=== PATIENT | male | born 1955 | race Caucasian/White ===

== ENCOUNTER 2021-09-26 09:17 | Observation (INO) ==
--- NOTE | 2021-08-25 09:17 | PAT Medication Instructions ---
Medication Instructions Date of Service August 25, 2021 Home Medications aspirin 81 mg tablet,delayed release 81 mg PO HS cholecalciferol (vitamin D3) 125 mcg (5,000 unit) tablet (Vitamin D3) 125 mcg PO QAM cholestyramine (with sugar) 4 gram oral powder (Questran) 4 g PO HS ezetimibe 10 mg tablet (Zetia) 10 mg PO HS glucosamine sulf dipot chlr,msm,chond 550 mg-C 30 mg-nina 1 mg capsule (Glucosamine Chondroitin) 2 cap PO QAM levothyroxine 100 mcg capsule 100 mcg PO QAM multivitamin 1 tab PO QAM omega-3 fatty acids 4,000 mg PO HS tadalafil 5 mg tablet (Cialis) 5 mg PO HS valacyclovir 500 mg tablet (Valtrex) 500 mg PO UD PRN STOP taking 2 weeks before surgery glucosamine sulf dipot chlr,msm,chond 550 mg-C 30 mg-nina 1 mg capsule (Glucosamine Chondroitin) 2 cap PO QAM omega-3 fatty acids 4,000 mg PO HS STOP taking 24 hours before surgery tadalafil 5 mg tablet (Cialis) 5 mg PO HS DO NOT take the morning of surgery cholecalciferol (vitamin D3) 125 mcg (5,000 unit) tablet (Vitamin D3) 125 mcg PO QAM multivitamin 1 tab PO QAM Take morning of surgery With a small sip of water, OTHERWISE NOTHING TO EAT OR DRINK AFTER MIDNIGHT: levothyroxine 100 mcg capsule 100 mcg PO QAM valacyclovir 500 mg tablet (Valtrex) 500 mg PO UD PRN(if needed) Take evening before surgery aspirin 81 mg tablet,delayed release 81 mg PO HS (unless directed otherwise by surgeon) cholestyramine (with sugar) 4 gram oral powder (Questran) 4 g PO HS ezetimibe 10 mg tablet (Zetia) 10 mg PO HS Other Notes If you have any questions please call us at [phone] or [phone] or [phone] or [phone]
--- NOTE | 2021-08-25 09:21 | Anesthesiology Consultation ---
Date of Service August 25, 2021 Assessment & Plan (1) Encounter for pre-operative examination: - bilat TKA: Discussed unilateral vs bilateral TKA, pt states that he is aware of risks also discussed with surgeon and wants to proceed with bilat TKA. - COVID screening: Per assessment on 08/25/2021: Travel screen negative, no known COVID-19 positive contacts or current COVID-19 related symptoms in past 2 weeks. Patient vaccinated. Surgeon arranging preop COVID testing, scheduled 09/22/2021. Awaiting results. Chart Review Chart Review: Acceptable Risk for Surgery and Patient seen in Pre Admission Testing Teaching & Discussion Pre-Anesthesia Teaching/Discussion Notes: Instructed NPO after midnight before surgery, except medications with 15 cc of water. Medication instructions provided according to the PAT guidelines. History Surgery Operation Date: 09/26/21 10:30 Proposed Procedures p Total Knee Arthroplasty Bilateral - Mj Bell DO Height/Weight Height: 5 ft 7 in Weight: 90.9 kg Allergies Allergy/AdvReac Type Severity Reaction Status Date / Time niacin Allergy Intermediate FELT HOT Verified 08/25/21 07:32 ALL OVER BODY oxycodone AdvReac Intermediate nausea and Verified 08/25/21 09:39 vomiting Medications Home Medications Medication Instructions Recorded Confirmed Last Taken aspirin 81 mg tablet,delayed 81 mg PO HS 08/25/21 08/25/21 Unknown release cholecalciferol (vitamin D3) 125 125 mcg PO QAM 08/25/21 08/25/21 Unknown mcg (5,000 unit) tablet (Vitamin D3) cholestyramine (with sugar) 4 gram 4 g PO HS 08/25/21 08/25/21 Unknown oral powder (Questran) ezetimibe 10 mg tablet (Zetia) 10 mg PO HS 08/25/21 08/25/21 Unknown glucosamine sulf dipot 2 cap PO QAM 08/25/21 08/25/21 Unknown chlr,msm,chond 550 mg-C 30 mg-nina 1 mg capsule (Glucosamine Chondroitin) levothyroxine 100 mcg capsule 100 mcg PO QAM 08/25/21 08/25/21 Unknown multivitamin 1 tab PO QAM 08/25/21 08/25/21 Unknown omega-3 fatty acids 4,000 mg PO HS 08/25/21 08/25/21 Unknown tadalafil 5 mg tablet (Cialis) 5 mg PO HS 08/25/21 08/25/21 Unknown valacyclovir 500 mg tablet 500 mg PO UD PRN 08/25/21 08/25/21 Unknown (Valtrex) Past Medical History Medical History (Updated 08/25/21 @ 09:19 by Germania Parra PA-C) Arthritis Frequent urination at night REASON FOR CIALIS Hyperlipidemia Hypothyroidism Neuropathy LEFT ARM/"ELBOW NERVE PROBLEM" Patient denies h/o stroke, seizures, heart attack, heart failure, DM, HTN, blood clots or blood transfusions. Exercise / Class Metabolic Activity II 4-5 Yardwork/Stairs/Walk up hill (denies CP or SOB with 1 FOS) Past Family History Family History Sister Family hx colonic polyps Other No family history of adverse response to anesthesia Past Surgical History Surgical History (Updated 08/25/21 @ 09:29 by Germania Parra PA-C) Fusion of spine 04/2019-LUMBAR FUSION L4-L5 H/O hand surgery R I&D 2007 H/O metal removed from eye H/O shoulder surgery LEFT History of carpal tunnel release RT History of colonoscopy History of tooth extraction [place] teeth removed Past Anesthesia History No Hx of Anesthesia Complications and No Family Hx of Anesthesia Complications History of PONV No Hx of PONV and No Hx of Motion Sickness Social History Smoking Status: Never smoker Do You Dip or Chew Tobacco: No Hx Alcohol Use: Yes alcohol intake frequency: holidays/special occasions only substance use type: does not use Review of Systems Occasional snoring, denies witnessed apneas or sleep studies. Patient denies chest pain, shortness of breath, dyspnea on exertion, reflux, fever, chills, cough, wheezing, or palpitations. Physical Exam Vital Signs Vitals BP 127/77 P 76 TEMP 98.3 SP02 97% on RA RESP 17 Physical Full cervical extension range of motion without pain TMD 3.5 finger breaths Mallampati Score 3 Dentition: intact, implant front upper tooth; denies chipped or loose teeth, caps/crowns Lungs: normal respiratory effort. Clear throughout to auscultation, no adventitious breath sounds Cardiac: regular rate and rhythm, no murmurs noted Carotid arteries: negative bruit bilat Lab Results Anesthesia Preop Results Results Anesthesia Widget: WBC 6.76 K/uL (4.8-10.8) 08/25/21 Hgb 13.2 g/dL (14.0-18.0) L 08/25/21 Hct 41.2 % (42-52) L 08/25/21 Plt 214 K/uL (130-400) 08/25/21 Na 141 mmol/L (136-145) 08/25/21 K 4.1 mmol/L (3.5-5.1) 08/25/21 Cl 110 mmol/L (98-107) H 08/25/21 CO2 25 mmol/L (21-32) 08/25/21 BUN 20 mg/dl (6-23) 08/25/21 Creat 0.87 mg/dl (0.6-1.4) 08/25/21 Glucose Level 94 mg/dl (70-99(Fasting)) 08/25/21 PT 10.7 Seconds (9.0-12.0) 08/25/21 PTT 27.1 Seconds (21.0-31.0) 08/25/21 INR 1.0 (0.9-1.1) 08/25/21 HA1c 5.7 % (4.5-5.6) H 08/25/21 Urine Color Yellow 08/25/21 Urine Appearance Clear (Clear) 08/25/21 Urine pH 5.5 (4.5-7.5) 08/25/21 Urine Specific [place] 1.025 (1.000-1.030) 08/25/21 Urine Protein Negative (Negative) 08/25/21 Urine Glucose (UA) Negative (Negative) 08/25/21 Urine Ketones Negative (Negative) 08/25/21 Urine Blood Negative (Negative) 08/25/21 Urine Nitrite Negative (Negative) 08/25/21 Urine Bilirubin Negative (Negative) 08/25/21 Urine Urobilinogen Negative (Negative) 08/25/21 Urine Leukocyte Esterase Negative (Negative) 08/25/21 Blood Type O Positive 08/25/21 Antibody Screen NEGATIVE 08/25/21 Testing Electrocardiogram Date: 08/25/21 NSR, rate 65 bpm Chest X-Ray Date: 08/25/21 No acute cardiopulmonary findings.
--- NOTE | 2021-08-28 14:10 | History & Physical Report ---
Date of Service August 28, 2021 date of surgery: 09/26/21 Procedure: Bilateral Total Knee Arthroplasty Surgeon: Mj Bell Assessment & Plan (1) Degenerative arthritis of knee, bilateral: Plan: Risks and benefits of procedure discussed in detail today, patient would like to proceed with Bilateral total knee replacements at [facility] as scheduled. will obtain medical clearance prior to surgery as well as obtain PATs at [facility]. Will place on Xarelto x 1 month post op, f/u 2 weeks post op for routine post-operative care and x-ray, sooner if having any problems. will make arrangements for HHPT at the time of discharge. At this point in time, has failed conservative measures and would like to proceed with surgical intervention. will schedule for Iovera inj prior to his TKAs The risks and benefits have been discussed including, but not limited to, risk of infection, nerve injury, stiffness, loss of motion, failure to improve, etc. Reasonable outcomes and options of treatment were discussed. An explanation of appropriate alternatives to the procedure that may be advantageous were discussed and their risks and benefits, as well as the risks and benefits of not proceeding with treatment. I offered to answer any additional inquiries concerning the treatment involved. All the patient's questions were answered. The patient is agreeable, understanding of the treatment plan and alternatives, and wishes to proceed with the treatment plan. History of Present Illness Chief Complaint: bilateral knee pain Primary Care Provider: ANA PCP Rashid is a 66 year old male who complains of bilateral knee pain, presents for pre-op evaluation prior to bilateral total knee replacements. He complains of pain, crepitus, decreased range of motion, instability and stiffness in both of his knees. he has tried and failed prior cortisone injections, Zilretta injections, and visco injections. His pain is described as aching, sharp and throbbing. His symptoms are aggravated by ascending stairs, daily activities, first steps while awake walking. Prior NSAIDs include IBU and Aleve. Allergies Allergy/AdvReac Type Severity Reaction Status Date / Time niacin Allergy Intermediate FELT HOT Verified 08/25/21 07:32 ALL OVER BODY oxycodone AdvReac Intermediate nausea and Verified 08/25/21 09:39 vomiting Home Medications Medication Instructions Recorded Confirmed Type aspirin 81 mg tablet,delayed 81 mg PO HS 08/25/21 08/25/21 History release cholecalciferol (vitamin D3) 125 125 mcg PO QAM 08/25/21 08/25/21 History mcg (5,000 unit) tablet (Vitamin D3) cholestyramine (with sugar) 4 gram 4 g PO HS 08/25/21 08/25/21 History oral powder (Questran) ezetimibe 10 mg tablet (Zetia) 10 mg PO HS 08/25/21 08/25/21 History glucosamine sulf dipot 2 cap PO QAM 08/25/21 08/25/21 History chlr,msm,chond 550 mg-C 30 mg-nina 1 mg capsule (Glucosamine Chondroitin) levothyroxine 100 mcg capsule 100 mcg PO QAM 08/25/21 08/25/21 History multivitamin 1 tab PO QAM 08/25/21 08/25/21 History omega-3 fatty acids 4,000 mg PO HS 08/25/21 08/25/21 History tadalafil 5 mg tablet (Cialis) 5 mg PO HS 08/25/21 08/25/21 History valacyclovir 500 mg tablet 500 mg PO UD PRN 08/25/21 08/25/21 History (Valtrex) Past Med/Surg History Medical History Arthritis Frequent urination at night REASON FOR CIALIS Hyperlipidemia Hypothyroidism Neuropathy LEFT ARM/"ELBOW NERVE PROBLEM" Surgical History Fusion of spine 04/2019-LUMBAR FUSION L4-L5 H/O hand surgery R I&D 2007 H/O metal removed from eye H/O shoulder surgery LEFT History of carpal tunnel release RT History of colonoscopy History of tooth extraction [place] teeth removed Family History Sister Family hx colonic polyps Other No family history of adverse response to anesthesia Social History Smoking Status: Never smoker Second Hand Exposure: No; Hx Alcohol Use: Yes Preferred Language: Welsh 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 Beliefs That Will Affect Care: None Current Living Situation: Spouse Feels Safe at Home: Yes Assistive Devices: Glasses and Hearing Aid - Bilateral Review of Systems Review of Systems: All systems reviewed & are unremarkable except as noted in HPI & below Constitutional: no fever, no chills and no sweats Respiratory: no cough and no dyspnea Cardiovascular: no chest pain, no dyspnea and no orthopnea Gastrointestinal: no abdominal pain, no nausea and no vomiting Musculoskeletal: as per Subjective / HPI Physical Exam Physical Exam: HT: 5ft 7in WT: 90.9kg Constitutional: WD/WN, vitals as above no acute distress Respiratory: normal respiratory effort, lungs clear to auscultation no respiratory distress, no labored breathing and does not use accessory muscles Cardiovascular: RRR, no murmur, no edema Gastrointestinal (Abdomen): normal bowel sounds, soft, nontender, no hepatosplenomegaly Musculoskeletal: Bilateral knee Physical exam Overall patient has varus alignment bilaterally, there is no atrophy or ecchymosis noted, +1 suprapatellar effusion in both knees, positive tenderness to both medial and lateral joint lines right knee, more medial sided tenderness to the left knee. negative patellar apprehension, positive crepitation noted to both knees with active ROM. bilateral knees stable to valgus and varus stress, lakeisha negative, posterior drawer negative. Range of motion right knee 0/3/110, left knee 0/3/115. lower extremities are neurovascularly intact, calf soft and non tender, DP pulse +2 bilaterally. Results & Data Results & Data ([facility]) Diagnostic Findings Bilateral Knee X-ray: bilateral knee series confirm advanced degenerative changes bilateral knees, greatest medial compartments and patellofemoral joints, showing joint space narrowing, osteophyte formation and subchondral sclerosis. no acute bony pathology noted.
[~2021-09-26 09:17] MED LIST: ACETAMINOPHEN 500 MG TAB PO SCH; BUPIVACAINE 0.5 % 5 MG/1 ML PF 10ML VIAL ONE; CeleBREX 200 MG CAP PO SCH; FAMOTIDINE 20 MG TAB PO SCH; GABAPENTIN 300 MG CAP PO SCH; LR 500ML BOLUS, THEN 15ML/HR IV SCH; LR 60ML/HR IV SCH; METOCLOPRAMIDE HCL 10 MG TABLET PO SCH; ROPIVACAINE 0.5% 5 MG/ML 30 ML VIAL ONE; ROPIVACAINE 0.5% HCL/PF 150 MG, BUPIVACAINE 0.75% MPF 20 ML, EPINEPHrine 30MG/30ML (OR ... INFIL SCH; TRANEXAMIC ACID 1,000 MG **IV Intra-op IV SCH; TRANEXAMIC ACID 1,000 MG **IV Pre-op IV SCH; ceFAZolin 2000MG 2,000 MG/15 ML SYR IV SCH; dexAMETHasone 4 MG TAB PO SCH
--- NOTE | 2021-09-26 10:54 | History & Physical Bridge Note ---
Date of Service September 26, 2021 History & Physical Bridge Note I have examined the patient, reviewed the History & Physical and in the interval since the performance of the History & Physical I have noted the following changes of clinical significance: no changes noted
[2021-09-26] MEDS ORDERED: MIDAZOLAM HCL 1 MG/ML 2ML VIAL ONE (11:01)
[2021-09-26] MEDS ORDERED: fentaNYL citrate 100 MCG/2 ML VIAL ONE (11:01)
[2021-09-26] MEDS ORDERED: ePHEDrine sulfate 50 MG/ML AMP IV PRN (12:37)
[2021-09-26] MEDS ORDERED: ATROPINE SULFATE 0.1 MG/ML 10ML SYR IV PRN (12:37)
[2021-09-26] MEDS ORDERED: ONDANSETRON INJ 2 MG/ML 2 ML VIAL IV PRN ×2 (12:37→18:03)
[2021-09-26] MEDS ORDERED: HYDROmorphone INJ 2 MG/ML SYR/VIAL IV PRN (12:37)
[2021-09-26] MEDS ORDERED: fentaNYL citrate 100 MCG/2 ML VIAL IV PRN (12:37)
[2021-09-26] MEDS ORDERED: PROMETHAZINE HCL 12.5 MG in SODIUM CHLORIDE 0.9% 50 ML IV PRN (12:37)
[2021-09-26] MEDS ORDERED: ORTHO JOINT ANESTHETIC ONE (13:12)
[2021-09-26] MEDS ORDERED: PROPOFOL IV EMULSION 10 MG/ML 20 ML VIAL IV ONE ×2 (14:23→15:40)
[2021-09-26] MEDS ORDERED: LIDOCAINE 2% 2 ML VIAL/AMP(20MG/ML) INFIL ONE (14:23)
[2021-09-26] MEDS ORDERED: ONDANSETRON INJ 2 MG/ML 2 ML VIAL ONE (14:23)
--- NOTE | 2021-09-26 15:27 | Operative Report ---
Post Operative Report Pre & Post Diagnosis Operation Date: 09/26/21 12:15 Pre-Op Diagnosis: Bilateral Knee Osteoarthritis Post-Op Diagnosis: Bilateral Knee Osteoarthritis I identified the patient and participated in the time-out.: Yes Procedure Operation Date: 09/26/21 12:15 Actual Procedures p Bilateral Total Knee Arthroplasty(Bilateral left size 9 standard femur size F tibia 10 polyethylene 28 oval patella right size 9 standard femur F tibia 11 medial constrained polythirty 1 oval patella Mj Bell DO Surgeon Mj Bell DO Blueprint Clerk Marquise LOVELACE Estimated Blood Loss 10 Findings Consistent with Post-Op Diagnosis Patient resents with severe end-stage tricompartmental degenerative joint disease bilateral knees with varus alignment subchondral sclerosis marginal osteophytes bilaterally eburnated [id number] large effusions bilaterally Specimens Bone and cartilage Drains Medium bore Hemovac Anesthesia Type MAC Spinal Regional Complications none Disposition Accompanied Patient To Recovery: No Disposition: Recovery Room Indications Patient presents severe end-stage tricompartmental degenerative joint disease bilateral knees no response to conservative management patient has failed attempted corticosteroid injection viscosupplementation relative rest activity modification patient presents for bilateral total knee arthroplasty Description of Procedure After proper prepping and draping of the bilateral lower extremities, an anterior midline incision was made over the region of the extensor extensor mechanism of the left knee. After meticulous hemostasis was obtained and maintained in subcutaneous tissues a medial parapatellar incision was made The patella was subluxed lateralward the medial lateral gutter were cleaned from any hypertrophic synovitis and scar tissue of the distal femoral block was placed and the distal femoral osteotomy cut was made subsequently the chamfers anterior and posterior osteotomy cuts were made utilizing the 4-in-1 block the tibia was subsequently subluxed anteriorward medial and ateral meniscal remnants were excised in their entirety remnants of the anterior and posterior cruciate ligaments were excised in their entirety excellent exposure of the proximal tibia was obtained the tibial osteotomy guide was placed on the proximal tibial osteotomy cut was made once again the knee was irrigated with copious amounts of sterile saline solution the patella was subsequently everted lateralward thickened scar tissue around the patella was removed the patella was subsequently cut utilizing a freehand technique and was drilled prepared for final preparation and placement of patella socially flexion-extension gaps were checked and the equal and symmetric trials were placed to the appropriate femoral and tibial trials with poly-spacer being placed for equal flexion and extension gaps and full range of motion including extension to 0 and flexion to 140 the trial components after having been taken to recovery range of motion was subsequently removed meticulous hemostasis was obtained and maintained subsequently a knee block injection of joint cocktail including ropivacaine 0.5% 150 mg. Bupivacaine 0.5% epinephrine 1-200,030 mL's toradol 30 mg dexamethasone 4 mg ketamine 10 mg clonidine 100 micrograms normal saline solution 30 mg was infiltrated into the soft tissues of the posterior knee medial lateral gutters and periosteal synovium special attention was paid to protect neurovascular structures at all times subsequently trial components having been removed the knee was irrigated with sterile saline solution. debris was removed the proximal tibia was subsequently prepared and was made ready for the placement of the tibial component tibial component was also cemented and tamped into position the femoral component was subsequently placed and cemented in the position the patellar component was subsequently cemented in position because hemostasis once again obtained and maintained wound having been thoroughly irrigated with debridement and debridement lavage was performed as well as a medial parapatellar incision closed with #1 Vicryl in interrupted fashion subcutaneous was closed with #2 Vicryl skin was closed with skin clips Next, an anterior midline incision was made over the region of the extensor extensor mechanism of the right knee. After meticulous hemostasis was obtained and maintained in subcutaneous tissues a medial parapatellar incision was made The patella was subluxed lateralward the medial lateral gutter were cleaned from any hypertrophic synovitis and scar tissue of the distal femoral block was placed and the distal femoral osteotomy cut was made subsequently the chamfers anterior and posterior osteotomy cuts were made utilizing the 4-in-1 block the tibia was subsequently subluxed anteriorward medial and ateral meniscal remnants were excised in their entirety remnants of the anterior and posterior cruciate ligaments were excised in their entirety excellent exposure of the proximal tibia was obtained the tibial osteotomy guide was placed on the proximal tibial osteotomy cut was made once again the knee was irrigated with copious amounts of sterile saline solution the patella was subsequently everted lateralward thickened scar tissue around the patella was removed the patella was subsequently cut utilizing a freehand technique and was drilled prepared for final preparation and placement of patella socially flexion-extension gaps were checked and the equal and symmetric trials were placed to the appropriate femoral and tibial trials with poly-spacer being placed for equal flexion and extension gaps and full range of motion including extension to 0 and flexion to 140 the trial components after having been taken to recovery range of motion was subsequently removed meticulous hemostasis was obtained and maintained subsequently a knee block injection of joint cocktail including ropivacaine 0.5% 150 mg. Bupivacaine 0.5% epinephrine 1-200,030 mL's toradol 30 mg dexamethasone 4 mg ketamine 10 mg clonidine 100 micrograms normal saline solution 30 mg was infiltrated into the soft tissues of the posterior knee medial lateral gutters and periosteal synovium special attention was paid to protect neurovascular structures at all times subsequently trial components having been removed the knee was irrigated with sterile saline solution. debris was removed the proximal tibia was subsequently prepared and was made ready for the placement of the tibial component tibial component was also cemented and tamped into position the femoral component was subsequently placed and cemented in the position the patellar component was subsequently cemented in position because hemostasis once again obtained and maintained wound having been thoroughly irrigated with debridement and debridement lavage was performed as well as a medial parapatellar incision closed with #1 Vicryl in interrupted fashion subcutaneous was closed with #2 Vicryl skin was closed with skin clips.. Due to the complex nature of the procedure, the entire surgery was performed with the operational assistance of Marquise LOVELACE. The family and divorce legal assistant, under direct supervision, was involved in the actual performance of all aspects of the surgical procedure including hemostasis, tissue retraction and incision, instrument management, patient positioning, and wound closure. SHAHLA was necessary for prepping and drapping as well as wound closure of deep fascia Sub cutaneous tissue and skin and was necessary for the case. A sterile compressive dressings were placed, patient was taken to recovery in stable condition of report dictated by Ray I attest to the content of the Intraoperative Record and any orders documented therein. Any exceptions are noted below. I attest to the content of the Intraoperative Record and any orders documented therein. Any exceptions are noted below.
--- NOTE | 2021-09-26 16:45 | XRay Report ---
TWO VIEWS LEFT KNEE CLINICAL HISTORY: Postoperative examination. FINDINGS: AP and crosstable lateral portable views of the left knee are obtained. A left knee arthrop lasty is in near anatomic alignment. There has been undersurface remodeling of the patella. No acute fracture is seen. There are expected postoperative changes around the knee including a surgical drain , soft tissue edema, and subcutaneous gas. IMPRESSION: Expected postoperative changes status post left knee arthroplasty. No acute fracture is s een. ACT 112: Negative or not required by law. Electronically signed by: Jaspal Rinaldi M.D. 09/26/2021 4:44 PM
--- NOTE | 2021-09-26 16:46 | Anesthesiology Progress Note ---
Date of Service September 26, 2021 Anesthesia Post Procedure Vital Signs Vital Signs: Temp Pulse Pulse Resp BP Pulse Ox 09/26/21 16:35 61 17 121/75 98 09/26/21 16:25 64 16 117/80 100 09/26/21 16:15 36.3 C L 72 12 101/73 99 09/26/21 10:22 36.5 C 58 L 18 156/93 H 98 Pain Intensity Bilateral Knee: Pain Intensity: 6 Transfer of Care Handoff Completed per policy Notes Mental Status: alert / awake / arousable Patient Amnestic to Procedure: Yes Nausea / Vomiting: adequately controlled Pain: adequately controlled Airway Patency, RR, SpO2: stable & adequate BP & HR: stable & adequate Hydration State: stable & adequate Neuraxial Anesthesia: was administered and sensory block is resolving Anesthetic Complications: no major complications apparent
--- NOTE | 2021-09-26 16:47 | XRay Report ---
XR knee RT 1 or 2V routine CLINICAL HISTORY: Surgical Post Op. Status post knee replacement COMPARISON STUDY: No previous studies for comparison. TECHNIQUE: 2 right knee views FINDINGS: The patient is status post total knee replacement. The prosthetic components are in anatomi c alignment with no acute abnormality seen. Air is present within the soft tissues from the procedure . IMPRESSION: 1. Status post total knee replacement ACT 112: Negative or not required by law. Electronically signed by: Jaspreet Banerjee M.D. 09/26/2021 4:46 PM
[2021-09-26] MEDS ORDERED: oxyCODONE HCL IR 5 MG TAB (IMMEDIATE RELEASE) PO PRN (18:03)
[2021-09-26] MEDS ORDERED: bisacodyL 10 MG SUPP PR PRN (18:03)
[2021-09-26] MEDS ORDERED: HYDROmorphone INJ 0.5 MG/0.5 ML SYR IV PRN (18:03)
[2021-09-26] MEDS ORDERED: NALOXONE HCL 0.4 MG/1 ML VIAL/CARP IV PRN (18:03)
[2021-09-26] MEDS ORDERED: MAGNESIUM HYDROXIDE SUSP 30 ML UDC PO PRN (18:03)
[2021-09-26] MEDS: SODIUM CHLORIDE 0.9% 1000ML 1,000 ML IV SCH (18:20)
[2021-09-26] MEDS: DOCUSATE SODIUM 100 MG CAP PO SCH (20:15)
[2021-09-26] MEDS ORDERED: CHOLESTYRAMINE LIGHT 4 GM PKT PO SCH (21:00)
[2021-09-26] MEDS ORDERED: TADALAFIL 5 MG PO SCH (21:00)
[2021-09-26] MEDS ORDERED: EZETIMIBE 10 MG TABLET PO SCH (21:00)
[2021-09-26] MEDS ORDERED: SENNA 8.6 MG TAB PO SCH (21:00)
[2021-09-26] MEDS: ceFAZolin 2000MG 2,000 MG/15 ML SYR IV SCH (22:01)
[2021-09-26] MEDS: ACETAMINOPHEN 500 MG TAB PO SCH (22:01)
[2021-09-27] MEDS: SODIUM CHLORIDE 0.9% 1000ML 1,000 ML IV SCH (04:22)
[2021-09-27] MEDS: ACETAMINOPHEN 500 MG TAB PO SCH ×2 (05:51→13:13)
[2021-09-27] MEDS: ceFAZolin 2000MG 2,000 MG/15 ML SYR IV SCH (05:51)
--- NOTE | 2021-09-27 08:03 | Orthopedic Progress Note ---
Date of Service September 27, 2021 Assessment & Plan (1) Degenerative arthritis of knee, bilateral: Plan: Postop day 1 status post bilateral total knee arthroplasty. PT/OT protocols. Weightbearing as tolerated. DVT prophylaxis-rivaroxaban, SCDs, SUSAN ferreira. Pain management as written. Labs pending. DC planning-patient is planning for home health services upon discharge. Admission and Anticipated Discharge Date Admission Date: September 26, 2021 Subjective Postop day 1 Patient is sitting up in his chair at the bedside. He states he is feeling well this morning. Pain is controlled. He had some mild discomfort over the lateral aspect of his right knee but that is controlled at this time. Denies shortness of breath, chest pain, lightheadedness. No other complaints this morning. Physical Exam Physical Exam: Bilateral dressings are clean, dry, and intact. Calves are soft and nontender. Neurovascular is intact. Toes are mobile. He has good dorsiflexion and plantarflexion of both feet. Hemovac drainage noted to be 150 mL from the left knee and 125 mL in the right knee. Results & Data ([facility]) Vital Signs (Past 12 Hours) Vital Signs Temp Pulse Resp BP Pulse Ox 09/27/21 07:17 36.5 C 60 16 131/82 99 09/27/21 04:02 36.5 C 67 16 122/72 96 09/26/21 22:36 36.4 C L 68 18 112/67 95
[2021-09-27 08:04] LABS: Hematocrit (blood only) 37.4 % (42-52); Hemoglobin 12.1 g/dL (14.0-18.0); Mean Corpuscular Hemoglobin 27.5 pg (25-34); Mean Corpuscular Hgb Conc 32.4 g/dL (32-36); Mean Platelet Volume 10.2 fL (7.4-10.4); Platelet Count 238 K/uL (130-400); RDW Coefficient of Variation 14.4 % (11.5-14.5); RDW Standard Deviation 44.8 fL (36.4-46.3); White Blood Count 15.07 K/uL (4.8-10.8)
[2021-09-27] MEDS: DOCUSATE SODIUM 100 MG CAP PO SCH (08:05)
[2021-09-27 08:18] LABS: BUN Creatinine Ratio 20.7 (10-20); Calcium 8.7 mg/dl (8.5-10.1); Creatinine Clr Calc Pharmacy 92.2 ml/min; Est GFR (African American) 106.1 ml/min; Est GFR (Non-African American) 91.5 ml/min; Potassium 3.8 mmol/L (3.5-5.1)
[2021-09-27] MEDS ORDERED: MULTIVITAMIN TAB PO SCH (09:00)
[2021-09-27] MEDS ORDERED: RIVAROXABAN 10 MG TABLET PO SCH (09:00)
[2021-09-27] MEDS ORDERED: LEVOTHYROXINE SODIUM 100 MCG TABLET PO SCH (09:00)
[2021-09-27] MEDS ORDERED: CHOLECALCIFEROL 5,000 UNITS 125 MCG TAB PO SCH (09:00)
[2021-09-27] MEDS ORDERED: traMADol HCL 50 MG TABLET PO PRN ×2 (15:35→16:04)
--- NOTE | 2021-09-29 17:45 | Discharge Summary ---
Date of Service September 29, 2021 Admission HPI Per Admitting Provider Rashid is a 66 year old male who complains of bilateral knee pain, presents for pre-op evaluation prior to bilateral total knee replacements. He complains of pain, crepitus, decreased range of motion, instability and stiffness in both of his knees. he has tried and failed prior cortisone injections, Zilretta injections, and visco injections. His pain is described as aching, sharp and throbbing. His symptoms are aggravated by ascending stairs, daily activities, first steps while awake walking. Prior NSAIDs include IBU and Aleve. Admission Exam Per Admitting Provider Physical Exam: HT: 5ft 7in WT: 90.9kg Constitutional: WD/WN, vitals as above no acute distress Respiratory: normal respiratory effort, lungs clear to auscultation no respiratory distress, no labored breathing and does not use accessory muscles Cardiovascular: RRR, no murmur, no edema Gastrointestinal (Abdomen): normal bowel sounds, soft, nontender, no hepatosplenomegaly Musculoskeletal: Bilateral knee Physical exam Overall patient has varus alignment bilaterally, there is no atrophy or ecchymosis noted, +1 suprapatellar effusion in both knees, positive tenderness to both medial and lateral joint lines right knee, more medial sided tenderness to the left knee. negative patellar apprehension, positive crepitation noted to both knees with active ROM. bilateral knees stable to valgus and varus stress, lakeisha negative, posterior drawer negative. Range of motion right knee 0/3/110, left knee 0/3/115. lower extremities are neurovascularly intact, calf soft and non tender, DP pulse +2 bilaterally. Principal Diagnosis Osteoarthritis Bilateral Knees Discharge Data Allergies Allergy/AdvReac Type Severity Reaction Status Date / Time niacin Allergy Intermediate FELT HOT Verified 09/26/21 10:16 ALL OVER BODY oxycodone AdvReac Intermediate nausea and Verified 09/26/21 10:16 vomiting Procedures Performed Operation Date: 09/26/21 12:15 Actual Procedures p Bilateral Total Knee Arthroplasty(Bilateral) - Mj Bell DO Ordered Studies 09/26/21 05:00 US - OR guided needle placemen Routine Hospital Course (1) Degenerative arthritis of knee, bilateral: [facility], [id number] Orthopedic Progress Note Signed with Addenda Patient:RASHID KEE Admit Date:09/26/21 MR#:[id number] Att Phy:Mj Bell D.O. Acct ID:[id number] [facility] Phy:InésDeondre D.O. Date:1955 Fam Phy: Age:66 Location:3E Sex:M Room/Bed:[facility] cc: ~ *NOTICE TO RECEIVING GREEN PARTY/AGENCY This information is strictly Confidential and protected under [place] law. [place] law prohibits you from making any further disclosure of this information unless further disclosure is expressly permitted by the written consent of the person to whom it pertains or is authorized by law. A general authorization for the release of medical or other information is not sufficient for this purpose. Hospital accepts no responsibility if the information is made available to any other person, INCLUDING THE PATIENT. ADDENDUM 09/27/21ddendum September 27, 2021 12:44 Patient progressing well with his physical therapy. States that his pain did increase a little bit this morning however it is controlled at this time. No other complaints. He has ambulated a long hallway loop just prior to lunch. He is also worked on stairs. Continues to have some increased drainage from his Hemovac's however patient is planning for home health services and we will have them remove drains. Plan for discharge to home today. Addendum Signed By: <Electronically signed by Marquise Cunha PA-C> 09/27/211244 Addendum Cosigned By: <Electronically signed by Mj Bell DO> 09/27/21 125 Created: 09/27/21 Date of Service September 27, 2021 Assessment & Plan (1) Degenerative arthritis of knee, bilateral: Plan: Postop day 1 status post bilateral total knee arthroplasty. PT/OT protocols. Weightbearing as tolerated. DVT prophylaxis-rivaroxaban, SCDs, SUSAN hose. Pain management as written. Labs pending. DC planning-patient is planning for home health services upon discharge. Admission and Anticipated Discharge Date Admission Date: September 26, 2021 Subjective Postop day 1 Patient is sitting up in his chair at the bedside. He states he is feeling well this morning. Pain is controlled. He had some mild discomfort over the lateral aspect of his right knee but that is controlled at this time. Denies shortness of breath, chest pain, lightheadedness. No other complaints this morning. Physical Exam Physical Exam: Bilateral dressings are clean, dry, and intact. Calves are soft and nontender. Neurovascular is intact. Toes are mobile. He has good dorsiflexion and plantarflexion of both feet. Hemovac drainage noted to be 150 mL from the left knee and 125 mL in the right knee. Results & Data ([facility]) Vital Signs (Past 12 Hours) Vital Signs Temp Pulse Resp BP Pulse Ox 09/27/21 07:17 36.5 C 60 16 131/82 99 09/27/21 04:02 36.5 C 67 16 122/72 96 09/26/21 22:36 36.4 C L 68 18 112/67 95 HGB 12.1 Signed By: <Electronically signed by Marquise Cunha PA-C> 09/27/21 0805 <Electronically signed by Mj Bell DO> 09/27/21 0819 Total Time Total Time Spent Total Time Spent (In Minutes): 5 Discharge Plan Discharge Items Patient Disposition: Home - Home Health Services Reason For Visit: BILATERAL KNEE OSTEOARTHRITIS Discharge Diagnosis: Bilateral knee Osteoarthritis Activity: Per Instructions section Weightbearing: Left weightbearing and Right weightbearing Weightbearing Comment: as tolerated with walker Non-emergency contact: Surgeon Call non-emergency contact if: your pain is not controlled, your temperature is above 101.5, your wound has increased redness and your wound has increased drainage Follow-up/Referrals: Mj Bell DO [Surgeon] - (Follow up in 14 days from the day of your surgery for your first post operative visit. ) Deondre Conte D.O. [Primary Care Provider] - Diet: Regular Addtl Attending Provider Instructions: ACTIVITY RECOMMENDATIONS: SELF CARE INSTRUCTIONS AFTER TOTAL KNEE REPLACEMENT A. You may need to continue a physical therapy program after discharge from the hospital. There are several options available to you. Your doctor will assist you in selecting the best one for you. 1. An out-patient facility 2 to 3 times a week for therapy or home therapy. 2. Continue working on all exercises taught to you in the hospital. Your goals should be to increase bending of your knee to 90 degrees and beyond and to fully straighten your knee. B. You may progress at your own pace from walking with a walker or crutches to a cane; then to no assistive devices. C. Make walking a part of your daily routine. Be up as much as comfortable with rest periods throughout the day. Rest with leg elevation is very important. Use the ice wrap frequently for the first 3-4 weeks. D. There are no restrictions on activities. You may ride in a car, shop, participate in cuff slitter and all social activities. E. Wear the long elastic stockings (SUSAN hose) 20 hours a day for 2 weeks after surgery. They can be removed several times a day for laundering and for a bath. F. You may shower, no tub baths until cleared by your doctor. SPECIAL CARE INSTRUCTIONS: VERY IMPORTANT TO READ AND REVIEW A. There are a few signs you need to watch for after you are home. Call [facility] if you notice any of the followin. Increased severe knee pain. Some pain is expected especially when you exercise. 2. Increased swelling in your leg or knee; pain or swelling of the calf muscle in either lower leg. 3. Any fluid drainage from the incision. 4. Shortness of breath or chest pain. B. Please call [facility] at if you have any concerns or questions about your operation or recovery. The doctor or his nurse will return your call promptly. C. You must take antibiotics before dental work, bladder, bowel or other surgery. Your doctor will provide you with a permanent care to carry describing this precaution. IMPORTANT: * REMEMBER TO TAKE ASPIRIN, 81 MG, TWICE DAILY FOR 4 WEEKS UNLESS OTHERWISE DIRECTED. THIS IS YOUR BLOOD THINNER. * HIGH RISK PATIENTS MAY BE PRESCRIBED A STRONGER BLOOD THINNER. THIS WILL BE PROVIDED AT DISCHARGE. * CALL IF INCREASED PAIN, REDNESS, DRAINAGE OR FEVER GREATER THAT 101. * WEAR SUSAN HOSE 20 HOURS PER DAY FOR 2 WEEKS. * JEREL Dressing - This is a large suction dressing covering your incision. This will help pull any excess drainage from the wound and allow your incision to heal properly. You may shower with this if you can keep the unit outside of the shower. If any bleeding or leakage is noted please call your doctor's office. This will remain on your incision for 7 days and then should be removed. This can be done yourself or by the home nursing staff if applicable. The entire unit is disposable once removed. Once removed, keep incision clean and dry. If redness or drainage is noted, please call your surgeon. . * Once your Jerel dressings are removed, please keep your wounds covered with gauze until you are seen back in the office for your first post operative visit. FOLLOW UP VISIT: If appointment is not already scheduled: Please call [facility] to make a follow-up appointment for 2 weeks after your surgery at . Stand-Alone Forms: My [facility], Opioid Pain Management, Smoking Cessation Medications and DC Order Prescriptions: New acetaminophen [Tylenol Extra Strength] 500 mg Tablet 1,000 mg PO Q8 14 Days Qty: 84 RF: 0 Xarelto 10 mg Tablet 10 mg PO DAILY 30 Days Qty: 30 RF: 0 polyethylene glycol 3350 [Miralax] 17 gram powder in packet 17 g PO DAILY PRN (Reason: constipation) Qty: 5 RF: 0 cefadroxil 500 mg capsule 500 mg PO BID Qty: 28 RF: 1 tramadol 50 mg Tablet 50 - 100 mg PO Q4H PRN (Reason: pain) Qty: 30 RF: 0 Continued multivitamin Tablet 1 tab PO QAM RF: 0 valacyclovir [Valtrex] 500 mg Tablet 500 mg PO UD PRN (Reason: Cold Sores) RF: 0 aspirin 81 mg Tablet,Delayed Release (Dr/Ec) 81 mg PO HS RF: 0 ezetimibe [Zetia] 10 mg Tablet 10 mg PO HS RF: 0 cholestyramine (with sugar) [Questran] 4 gram Powder 4 g PO HS RF: 0 tadalafil [Cialis] 5 mg Tablet 5 mg PO HS RF: 0 cholecalciferol (vitamin D3) [Vitamin D3] 125 mcg (5,000 unit) Tablet 125 mcg PO QAM RF: 0 levothyroxine 100 mcg Capsule 100 mcg PO QAM RF: 0 Discontinued Fish Oil Capsule 4,000 mg PO HS RF: 0 Glucosamine Chondroitin 550-30-1 mg Capsule 2 cap PO QAM RF: 0 Discharge Orders: Discharge Order (Routine); Ordered 09/27/21 Ordered By: Marquise Stanton/Other Patient Handouts: DVT Post Op Prevention, Preventing Deep Vein Thrombosis Admission Data Admit Date/Time: 09/26/21 16:23 Attending Provider: Mj Bell Admit Provider: Mj Bell Primary Care Provider: Deondre Conte Other Interventions: Discharge Summary Assessment (RN) Last Done: 09/27/21 15:10
== END 2021-09-27 17:00 | disposition home health service (06) ==
LOC: ASU 09:17 → 3E 09:17